=== PATIENT | female | born 1995 | race Caucasian/White ===

== ENCOUNTER → 2017-04-08 | Outpatient (CLI) | payer OTHER ==
[~2017-04-08] VITALS: Ht 154.9 cm; Wt 105.7 kg
[~2017-04-08] MED LIST: IBUPROFEN 600600 M1 PO; IRON325 PO; LIORESAL 10 MG10 MG PO; OMEPRAZOLE10 MG PO; PROZAC 20 MG20 MG PO; SYNTHROID100 MCG PO; UNICOMPLEX M TA1 TA1 PO
--- NOTE | ~2017-04-08 | HPC ---
[facility] [address] [place] [address] PAIN MANAGEMENT CONSULTATION Name: PHIL POLLARD Room #: REG [facility].#: [id number] Admission: 04/08/17 Attend Phys: Bailey Toribio MD Discharge: Date of : 89 Report #: [id number] THIS REPORT FOR: //name// CC: Bailey Peterson MD DATE OF SERVICE: 04/08/2017 CHIEF COMPLAINT: Pain in the back and it is hard to get up. FOLLOWUP HISTORY: The patient is a 21-year-old female, who has been referred to the pain clinic for evaluation of back pain. She denies any trauma. Has noted that the pain has worsened over the last few months. She has an infant. She is nursing at this juncture. She has been reluctant to take medications, given that she is nursing. She notes that when she goes from a sitting to a standing position worsening of pain and discomfort. Walking can be uncomfortable in the low back area. Bending over lifting, twisting, and doing activities of daily living around the house are incumbent. Notes that her pain has improved with use of ice, elevation of her legs, and sometimes with sitting. She describes it as constant, shooting, cramping, aching, throbbing, and tender. Rates it as a 6/8 today. It is oftentimes an 8/10. Also, has some pain and discomfort in the medial portion of her right knee. Denies any significant trauma to this area. She is taking ibuprofen about every 6 hours p.r.n. She has not had back surgery. Overall, her health has been pretty good. ALLERGIES: No known drug allergies. CURRENT MEDICATIONS: Ibuprofen 200 mg q. 6 hours p.r.n. pain. PAST MEDICAL HISTORY: Asthma and hypertension. PAST SURGICAL HISTORY: Tonsillectomy, adenoidectomy, and . REVIEW OF SYSTEMS: Questionnaire in the chart indicates generally good health, asthma. Otherwise, other 14-point reviewed and unremarkable. 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 Has not been working over the last 10 months. Denies use of tobacco. Denies use of alcoholic beverages. Denies use of illicit drugs. Pain impact score 28. Generally viewed at about score of 5. History of osteoarthritis: None. History of rheumatoid arthritis: None. EKG normal. Pain intensity score 7. Fall risk: None. Fallen in the last 3 months: None. The patient on blood thinner: None. History of hypertension: Yes. The patient will continue to follow up with her primary care physician in that regard whether or not medications are needed. Opioid therapy greater than 6 weeks: None. Risk assessment tool score: 28. [address] [address] PAIN MANAGEMENT CONSULTATION Name: LATRICEPHIL [id number] Admission: 04/08/17 Attend Phys: Bailey Toribio MD Discharge: Date of : [birth year] Report #: [id number] Functional assessment: . Recreational drug use: Never. Tobacco: Never smoked. Alcohol use: No. PHYSICAL EXAMINATION: VITAL SIGNS: Height 5 feet 1 inch, weight 233 pounds, BMI is 44. Blood pressure 142/68, pulse 93, respiratory rate 16, temperature, non-febrile, saturation score 100. GENERAL: The patient is a well-developed, obese female. It appears appropriate stated age. Alert and oriented x 3. Affect appears appropriate. The patient has her baby with her who as an infant. HEENT: Head is atraumatic. Ears: Normal hearing. Eye muscles intact. Nasal evaluation, unremarkable. Buccal membranes moist. NECK: Without adenopathy, JVD or masses. LUNGS: Clear to auscultation. HEART: Regular rate with normal S1, S2. No wheezing is heard. ABDOMEN: Protuberant, nontender. No masses appreciated. MUSCULOSKELETAL: Normal alignment. No scoliosis, no kyphosis. No significant lordosis. Gait appears normal. Neck: Flexion, extension, rotation, left and right were unremarkable. Back: Flexion, extension, left and right rotation as well as lateral bending were not very problematic. The patient does complain of some pain and discomfort in the midline areas at approximately the left and right paraspinous muscle area. EXTREMITIES: Upper extremities, intact with sensation to light touch. Muscle strength is judged to be 5/5. Deep tendon reflexes are trace at the biceps, triceps, and brachioradialis bilaterally. Lumbar examination reveals normal sensation to light touch, pinprick, and muscle strength is judged to be 5/5. Negative straight leg raise. NEUROLOGIC: Cranial nerves 2-12 within normal limits. Palpation in the area of the right and left posterior superior iliac spine near the gluteus sherin and latissimus dorsi reveals some tender points. I felt the patient had manipulation of the medial aspect of the patient's right knee, finds, no pathology. Palpation and pressure over the medial collateral ligament does cause some reproduction of the patient's knee pain. There is no radiation of this pain. Patellar reflexes are +1 and ankle reflexes are +1. The patient is able to walk on her heels and toes. No skin color changes are noted. SKIN: Unremarkable. IMPRESSION: 1. Myofascial pain, low back area. 2. Obesity. 3. Status post with and nursing at this juncture. RECOMMENDATIONS: We discussed treatment options with the patient. Risks and benefits of steroid injections to the knee area were discussed. At this juncture, I think that physical therapy would be a reasonable option. It does not appear to be any pathology involving her knee with ____ of the knee testing [address] [address] PAIN MANAGEMENT CONSULTATION Name: MILA POLLARDQUE Yosef [id number] Admission: 04/08/17 Attend Phys: Bailey Toribio MD Discharge: Date of : 97 Report #: [id number] the anterior and posterior cruciate ligaments as well as the meniscus. Palpation to the low back area in the area of the posterior superior iliac spine and the gluteus sherin and latissimus dorsi do produce pain and discomfort, which the patient has correlates with that which she is complaining of. It appears to be myofascial in nature. We will have her continue with regimen of physical therapy. If her pain continues and persist, we could consider injecting the trigger point areas with local anesthetic and steroid. We have discussed this with the patient and she is satisfied with this conclusion. She will be given a script to go to a physical therapy clinic 3 times a week for the next 3 weeks. We would like to thank you for letting us participate in her care. We hope she continues to improve. <ELECTRONICALLY SIGNED> By: Bailey Toribio MD 04/17/17 1332 [id number] N. Markus Toribio MD /PMT
[2017-04-08 09:36] VITALS: BP 167/88
[2017-04-08 10:06] VITALS: BP 142/68
== END ==
LOC: PAIN 06:50
DX: M54.5 Low back pain (principal); E66.9 Obesity, unspecified